=== PATIENT | female | born 1985 ===

== ENCOUNTER 2018-11-20 08:05 | Inpatient (IN) | payer OTHER ==
[~2018-11-20] VITALS: Ht 162.6 cm; Wt 3.2 kg
[2018-11-27] MEDS ORDERED: PRENATAL PLUS1 EAC2 PO (06:57)
[2018-11-29] MEDS ORDERED: ACETAMINOPHEN500 M1 PO (10:41)
[2018-11-29] MEDS ORDERED: IBUPROFEN800 MG PO (10:41)
[2018-11-29] MEDS ORDERED: TUSSI-PRES B LIQ5 ML PO (10:42)
[2018-11-29] MEDS ORDERED: DOCUSATE SODIU100 MG PO (10:42)
== END 2018-11-29 13:12 | DRG 788 ==
LOC: OB/GYN 11-25 07:45 → O/R 11-27 06:25 → OB/GYN 11-27 07:00 → EDBD 11-27 07:45 → OB/GYN 11-27 07:45 → SURG-SUITE 11-27 12:36
PROVIDERS: ADMIT Obstetrics & Gynecology
PROC: 4A1HXCZ Monitoring of Products of Conception, Cardiac Rate, External Approach (ICD-10-PCS; 2018-11-27)
PROC: 10D00Z1 Extraction of Products of Conception, Low, Open Approach (ICD-10-PCS; principal; 2018-11-27 07:00)
DX: O32.1XX0 Maternal care for breech presentation, not applicable or unspecified (principal); Z3A.39 39 weeks gestation of pregnancy; Z37.0 Single live birth